=== PATIENT | female | born 1930 | race African-American/Black ===

== ENCOUNTER 2017-11-18 14:37 | Emergency (ER) | payer OTHER ==
--- NOTE | 2017-11-18 15:06 | PDOC ---
Rapid Medical Evaluation Time Seen by Provider: 11/18/17 15:03 Medical Evaluation: Allergies Allergy/AdvReac Type Severity Reaction Status Date / Time No Known Allergies Allergy Verified 09/19/17 14:50 I have performed a brief in-person evaluation of this patient. The patient presents with a chief complaint of: clamp of her G-tube broke off Pertinent physical exam findings: see above I have ordered the following: nothing The patient will proceed to the ED for further evaluation Discharge Disposition - Diagnosis Problem with gastrostomy tube - Referrals Referrals: Terry Long MD [Primary Care Provider] - - Patient Instructions - Post Discharge Activity
[2017-11-18 15:07] VITALS: BP 144/60; PULSE 71; TEMP 98.8; BMI 18.6
--- NOTE | 2017-11-18 17:22 | PDOC ---
History of Present Illness - General Chief Complaint: G Tube Problem Stated Complaint: G TUBE Time Seen by Provider: 11/18/17 15:03 History Source: Patient Exam Limitations: No Limitations - History of Present Illness Initial Comments: 11/18/17 17:24 86-year-old female with history of throat cancer and stricture presents to ED with complaints of the tip of her G-tube broke and needs medical attention. Patient states had a G2 placed in April of this year by a surgeon at [facility]. Patient denies any pain or difficulty receiving feedings this morning but states when she put the tip back on it broke. Patient has no other complaints at this time. Timing/Duration: 4-6 hours Severity: mild Associated Symptoms: reports: denies symptoms Past History - Travel Traveled outside of the country in the last 30 days: No - Past Medical History Allergies/Adverse Reactions: Allergies Allergy/AdvReac Type Severity Reaction Status Date / Time No Known Allergies Allergy Verified 11/18/17 15:09 Cancer: Yes (throat) COPD: No HTN: Yes - Suicide/Smoking/Psychosocial Hx Smoking History: Former smoker Have you smoked in the past 12 months: No If you are a former smoker, when did you quit?: 70 years ago Information on smoking cessation initiated: No Patient Lives Alone: Yes Lives with/in: lives alone (has an attentive neighbor) Review of Systems - Review of Systems Able to Perform ROS?: Yes Constitutional: No: Symptoms Reported ABD/GI: No: Symptoms Reported Integumentary: No: Symptoms Reported All Other Systems: Reviewed and Negative *Physical Exam - Vital Signs Last Vital Signs Temp Pulse Resp BP Pulse Ox 98.8 F 71 18 144/60 100 11/18/17 15:01 11/18/17 15:01 11/18/17 15:01 11/18/17 15:01 11/18/17 15:01 - Physical Exam General Appearance: Yes: Nourished, Appropriately Dressed. No: Apparent Distress Gastrointestinal/Abdominal: positive: Soft, Other (g-tube site intact and secured with dressing). negative: Tenderness Integumentary: positive: Normal Color, Warm, Moist, Other (stopper on the tip broke in the lumen) Neurologic: positive: Motor Strength 5/5 Medical Decision Making - Medical Decision Making 11/18/17 17:29 Patient here because the stopper on here G-tube broke after giving herself her feeding. Patient is no other complaints this time. Removed the large piece using a hemostat without difficulty. Flushed with 20 mL of saline without difficulty. Placement verified utilizing stethoscope and flush ,auscultating swoosh sound. Replaced with a plastic stopper which will require small piece of tape to secure. Patient to notify her surgeon of today's visit and schedule a follow-up appointment. *DC/Admit/Observation/Transfer Diagnosis at time of Disposition: Problem with gastrostomy tube - Discharge Dispostion Disposition: HOME Condition at time of disposition: Good - Referrals Referrals: Terry Long MD [Primary Care Provider] - - Patient Instructions Printed Discharge Instructions: How to Care for Your PEG Tube Additional Instructions: Although I have temporarily fixed your G-tube I do recommend following up with the surgeon for replacement this will need to be changed in the upcoming months. - Post Discharge Activity
== END 2017-11-18 17:50 | disposition home or self-care (01) ==
LOC: JER 14:37
PROC: 0D20XUZ Change Feeding Device in Upper Intestinal Tract, External Approach (ICD-10-PCS; principal; 2017-11-18)
DX: K94.23 Gastrostomy malfunction (principal)
CPT/HCPCS: 43760; 99283-25